=== PATIENT | female | born 1950 | race Caucasian/White ===

== ENCOUNTER 2022-10-07 09:23 | Day surgery (SDC) | payer MEDICARE, OTHER, SELFPAY ==
[2022-10-02 10:54] VITALS: BMI 33.5
--- NOTE | 2022-10-04 10:25 | MHC.SHP ---
Pre-Procedural Eval Section A Date of Service: 10/04/22 The patient is an INPATIENT: No Changes since office visit: No Cold of Flu in the past 2 weeks, No New Medical Problems, No Changes in Medication and No Patient answered all questions The History & Physical has been completed within 30 days and I have reviewed it.: Yes Section B Chief Complaint: Age-related nuclear cataract, right eye Allergies: Allergies Allergy/AdvReac Type Severity Reaction Status Date / Time codeine Allergy Severe Nausea and Verified 10/02/22 10:46 Vomiting Penicillins Allergy Severe Hives, SOB Verified 10/02/22 10:46 shellfish derived Allergy Intermediate mouth Verified 10/02/22 10:46 tingling Plan Diagnosis/Plan: Unchanged I have reviewed the history and physical and performed a pertinent physical examination on my patient. No changes have occurred unless specified. Time Spent With Patient Time: Total time managing care of this patient today ____ minutes.
[2022-10-07] MEDS: Ketorolac Tromethamine 0.5% Op 5 ML DROPS 1 DROP EYE-RIGHT ×3 (10:36→10:48)
[2022-10-07] MEDS: Tetracaine HCl/PF 0.5% Oph Sol 4 ML DROPS 1 DROP EYE-RIGHT (10:36)
[2022-10-07] MEDS: Phenylephrine HCL 2.5% Oph SoL 2 ML BOTTLE 1 DROP EYE-RIGHT ×3 (10:37→10:47)
[2022-10-07] MEDS: Tropicamide 1 % Ophth Sol 3 ML BTL 1 DROP EYE-RIGHT ×3 (10:37→10:47)
[2022-10-07] MEDS: Cyclopentolate 1 % Ophth Sol 2 ML DRPBTL 1 DROP EYE-RIGHT ×3 (10:37→10:47)
[2022-10-07 10:40] VITALS: BP 138/49; PULSE 62; RESP 18; TEMP 36.6; O2SAT 95
[2022-10-07 10:53] VITALS: BP 136/59
[2022-10-07] MEDS: Lactated Ringers 500 ML 50 ML IVCONT (10:54)
--- NOTE | 2022-10-07 11:31 | HO.PNOPHT ---
Ophthalmology Procedure Procedure Date of Service: 10/07/22 Ophthalmology Viscoelastic: [place] Duet Dual Pack Pro Ophthalmology Lenses: TECNIS [id number] (20.5) Procedure Notes: PREOPERATIVE DIAGNOSIS: Decreased visual acuity right eye secondary to cataract POSTOPERATIVE DIAGNOSIS: Same PROCEDURE: Right cataract extraction with intraocular lens insertion SURGEON: Greg Gold M.D. ANESTHESIA: Topical/MAC ESTIMATED BLOOD LOSS: None COMPLICATIONS: None After obtaining informed consent, the patient was brought to the operating room suite and placed in the supine position. After adequate sedation per anesthesia, topical drops of Tetracaine were given to the right eye. The eye was then prepped and draped in the usual sterile fashion. The operating room microscope was then positioned over the operative eye and a lid speculum placed. A paracentesis was created. Viscoelastic was then instilled into the anterior chamber. A three plane incision was then created temporally, utilizing a 2.85 mm keratome. Capsulotomy forceps were then utilized to create a circular tear capsulotomy. Hydrodissection and hydrodelineation were carried out until adequate mobilization of the nucleus occurred. Phacoemulsification was then utilized to remove the dense central nucleus followed by removal of the cortical material utilizing the automated aspiration irrigation unit. Viscoelastic was instilled into the posterior capsular bag followed by placement of a posterior chamber intraocular lens without difficulty. The residual Viscoelastic was then removed utilizing the automated IA machine. The wound was checked and found to be watertight. The patient tolerated the procedure well and the lid speculum was removed. Intracameral injection of Vigamox 0.1 mL followed by a subtenon injection of Kenalog-40 0.2 mL were administered. The patient will be seen in the a.m.
[2022-10-07 12:04] VITALS: BP 138/58; PULSE 60; RESP 16; TEMP 36.6; O2SAT 94
== END 2022-10-07 12:11 | disposition home or self-care (01) ==
PROVIDERS: PCP Internal Medicine; Visit Provider Ophthalmology
PROC: (CPT 66985; principal; 2022-10-07 12:00)
DX: H25.11 Age-related nuclear cataract, right eye (principal); I10 Essential (primary) hypertension; Z88.0 Allergy status to penicillin; Z88.5 Allergy status to narcotic agent
CPT/HCPCS: 66984; J2250; J3010; J3301; V2632

== ENCOUNTER 2022-10-21 08:14 | Day surgery (SDC) | payer MEDICARE, OTHER, SELFPAY ==
[2022-10-02 10:57] VITALS: BMI 33.5
--- NOTE | 2022-10-17 15:57 | MHC.SHP ---
Pre-Procedural Eval Section A Date of Service: 10/17/22 The patient is an INPATIENT: No Changes since office visit: No Cold of Flu in the past 2 weeks, No New Medical Problems, No Changes in Medication and No Patient answered all questions The History & Physical has been completed within 30 days and I have reviewed it.: Yes Section B Chief Complaint: Age-related nuclear cataract, left eye Allergies: Allergies Allergy/AdvReac Type Severity Reaction Status Date / Time codeine Allergy Severe Nausea and Verified 10/07/22 10:10 Vomiting Penicillins Allergy Severe Hives, SOB Verified 10/07/22 10:10 shellfish derived Allergy Intermediate mouth Verified 10/07/22 10:10 tingling Plan Diagnosis/Plan: Unchanged I have reviewed the history and physical and performed a pertinent physical examination on my patient. No changes have occurred unless specified. Time Spent With Patient Time: Total time managing care of this patient today ____ minutes.
[2022-10-21] MEDS: Tetracaine HCl/PF 0.5% Oph Sol 4 ML DROPS 1 DROP EYE-LEFT (09:07)
[2022-10-21] MEDS: Cyclopentolate 1 % Ophth Sol 2 ML DRPBTL 1 DROP EYE-LEFT ×3 (09:08→09:24)
--- NOTE | 2022-10-21 09:08 | HO.ANESPROP2 ---
HPI - Anesthesia Eval Consult details Narrative: Left eye cataract + IOL PMFSH Past Medical History Medical History Anxiety Arthritis Cataract Elevated cholesterol History of blood transfusion HTN (hypertension) Hx of supraventricular tachycardia Hx-TIA (transient ischemic attack) Low back pain AUDIE on CPAP Seasonal allergies Family History Family history of problems with anesthesia: No Surgical History Surgical History History of cataract surgery History of hysterectomy History of tonsillectomy and adenoidectomy Hx of colonoscopy Hx of dilation and curettage History of Problems with Anesthesia: No Social History Social History Are you a primary rn coronary care unit to a significant other at home: No Do you presently have visiting nurse or other home services: No Patient Tobacco Use Status: Former Tobacco user Quit Date: 1999 Tobacco use type: Cigarette Use of substances other than those prescribed or required for medical reasons: No Have you been hit, kicked, punched, or otherwise hurt by someone within the past year? If so, by whom?: No Are you DNR?: No Advance Directives: No Advance Directives Information Provided: Yes Advance Directives on File: No Recently lost weight without trying: No Nutrition Risks: No Nutritional Risk Poor oral hygiene: No (lower partial) Meds Allergies Allergy/AdvReac Type Severity Reaction Status Date / Time codeine Allergy Severe Nausea and Verified 10/21/22 08:57 Vomiting Penicillins Allergy Severe Hives, SOB Verified 10/21/22 08:57 shellfish derived Allergy Intermediate mouth Verified 10/21/22 08:57 tingling Active Medications: Current Medications Cyclopentolate HCl (Cyclopentolate 1 % Ophth Ondina 2 Ml Drpbtl) 1 drop EYE-LEFT Q5M [facility] Stop: 10/21/22 09:11 Lactated Ringer's (Lr) 500 mls @ 50 mls/hr IV .Q10H [facility] Stop: 10/21/22 18:59 Ketorolac Tromethamine (Ketorolac Tromethamine 0.5% Op 5 Ml Drops) 1 drop EYE-LEFT Q5M [facility] Stop: 10/21/22 09:11 Phenylephrine HCl (Phenylephrine Hcl 2.5% Oph Ondina 2 Ml Bottle) 1 drop EYE-LEFT Q5M [facility] Stop: 10/21/22 09:11 Povidone Iodine (Povidone Iodine 5 % Ophth Soln 30 Ml Bottle) 1 appl EYE-LEFT PREOP PRN PRN Reason: Pre-Op Surgical Implant Prophy Tropicamide (Tropicamide 1 % Ophth Ondina 3 Ml Btl) 1 drop EYE-LEFT Q5M [facility] Stop: 10/21/22 09:11 Home Medications Medication Instructions Recorded Confirmed Last Taken Type acetaminophen 650 mg 1,300 mg PO Q12H 10/02/22 10/21/22 Unknown History tablet,extended release aspirin 325 mg tablet 325 mg PO DAILY 10/02/22 10/21/22 10/20/22 History calcium carbonate 600 mg calcium 1,200 mg PO DAILY 10/02/22 10/21/22 Unknown History (1,500 mg) tablet (Calcium) cetirizine 10 mg tablet (Aller-Cassidy) 10 mg PO DAILY 10/02/22 10/21/22 10/21/22 History cholecalciferol (vitamin D3) 25 25 mcg PO DAILY 10/02/22 10/21/22 Unknown History mcg (1,000 unit) capsule (Vitamin D3) citalopram 20 mg tablet 20 mg PO DAILY 10/02/22 10/21/22 Unknown History epinephrine 0.3 mg/0.3 mL 0.3 ml IM ONCE PRN Allergic 10/02/22 10/21/22 Unknown History injection, auto-injector Reaction lisinopril 20 1 tab PO DAILY 10/02/22 10/21/22 Unknown History mg-hydrochlorothiazide 12.5 mg tablet multivitamin 1 tab PO DAILY 10/02/22 10/21/22 Unknown History propranolol 120 mg capsule,24 120 mg PO DAILY 10/02/22 10/21/22 10/21/22 History hr,extended release simvastatin 20 mg tablet 20 mg PO BEDTIME 10/02/22 10/21/22 Unknown History Exam Exam Date and Time: October 21, 2022907 Height,Weight and Vital Signs: Height 5 ft 4 in Weight 88.451 kg Airway Mallampati Class: II TM Dist: >3cm Loose/Missing/Broken Teeth: Yes Heart: [id number] Lungs: cta b/l Assessment and Plan Assessment Anesthesia Assessment: Anesthesia Plan Discussed and Chart Reviewed Final Anesthetic Review Family History of Problems with Anesthesia: No History of Problems with Anesthesia: No NPO: Yes ASA Class: III Final Preanesthetic Review: No Changes in Pt Med Stat, Meds/Allgs Chart Reviewed, Consent Obtained/Reviewed and Anes Risks/Benef Reviewed Patient Risk: Intermediate Procedure Risk: Low Assessment/Block/Sedation in SS: Assess/Block/Sedation-SS Anesthetic Plan Anesthetic Plan: MAC: and Agree w/ Assess. and Plan Disposition: Standard PACU
[2022-10-21 09:10] VITALS: BP 145/64; PULSE 58; RESP 16; TEMP 36.7; O2SAT 97
[2022-10-21] MEDS: Tropicamide 1 % Ophth Sol 3 ML BTL 1 DROP EYE-LEFT ×3 (09:10→09:28)
[2022-10-21] MEDS: Ketorolac Tromethamine 0.5% Op 5 ML DROPS 1 DROP EYE-LEFT ×3 (09:12→09:26)
[2022-10-21] MEDS: Phenylephrine HCL 2.5% Oph SoL 2 ML BOTTLE 1 DROP EYE-LEFT ×3 (09:14→09:30)
[2022-10-21] MEDS: Lactated Ringers 500 ML 50 ML IV (09:19)
--- NOTE | 2022-10-21 10:16 | HO.PNOPHT ---
Ophthalmology Procedure Procedure Date of Service: 10/21/22 Ophthalmology Viscoelastic: [place] Duet Dual Pack Pro Ophthalmology Lenses: TECREID [id number] (20) Procedure Notes: PREOPERATIVE DIAGNOSIS: Decreased visual acuity left eye secondary to cataract POSTOPERATIVE DIAGNOSIS: Same PROCEDURE: Left cataract extraction with intraocular lens insertion SURGEON: Greg Gold M.D. ANESTHESIA: Topical/MAC ESTIMATED BLOOD LOSS: None COMPLICATIONS: None After obtaining informed consent, the patient was brought to the operation room suite and placed in the supine position. After adequate sedation per anesthesia, topical drops of Tetracaine were given to the left eye. The eye was then prepped and draped in the usual sterile fashion. The operating room microscope was then positioned over the operative eye and a lid speculum placed. A paracentesis was created. Viscoelastic was then instilled into the anterior chamber. A three plane incision was then created temporally, utilizing a 2.85 mm keratome. Capsulotomy forceps were then utilized to create a circular tear capsulotomy. Hydrodissection and hydrodelineation were carried out until adequate mobilization of the nucleus occurred. Phacoemulsification was then utilized to remove the dense central nucleus followed by removal of the cortical material utilizing the automated aspiration irrigation unit. Viscoat elastic was instilled into the posterior capsular bag followed by placement of a posterior chamber intraocular lens without difficulty. The residual Viscoat elastic was then removed utilizing the automated IA machine. The wound was check and found to be watertight. The patient tolerated the procedure well and the lid speculum was removed. Intracameral injection of Vigamox 0.1 mL followed by a subtenon injection of Kenalog-40 0.2 mL were administered. The patient will be seen in the a.m.
[2022-10-21 10:37] VITALS: BP 138/60; PULSE 60; RESP 16; TEMP 37.1; O2SAT 97
== END 2022-10-21 10:51 | disposition home or self-care (01) ==
PROVIDERS: PCP Internal Medicine; Visit Provider Ophthalmology
PROC: (CPT 66985; principal; 2022-10-21 10:50)
DX: H25.12 Age-related nuclear cataract, left eye (principal); H52.4 Presbyopia; Z83.511 Family history of glaucoma; H35.033 Hypertensive retinopathy, bilateral; H18.413 Arcus senilis, bilateral; H33.001 Unspecified retinal detachment with retinal break, right eye; H31.001 Unspecified chorioretinal scars, right eye; I10 Essential (primary) hypertension; G47.33 Obstructive sleep apnea (adult) (pediatric); Z79.82 Long term (current) use of aspirin; Z79.899 Other long term (current) drug therapy; Z88.0 Allergy status to penicillin; Z88.8 Allergy status to other drugs, medicaments and biological substances; Z87.891 Personal history of nicotine dependence
CPT/HCPCS: 66984; J2250; J3301; V2632